=== PATIENT | female | born 1965 | race Caucasian/White ===

== ENCOUNTER → 2016-08-25 | Day surgery (SDC) | payer BC ==
[~2016-08-25] MED LIST: Buffered Lidocaine 1% SYR 3ML* 3 ML/SYR SYRINGE INTRADERM ONE; Buffered Lidocaine 1% SYR 3ML* 3 ML/SYR SYRINGE ONE; Bupivacaine 0.25% SDV* 30 ML ONE; Dexamethasone IV* 4 MG/ML 1 ML (4 MG) ONE; Famotidine IV* 10 MG/ML 2 ML (20 mg) IV ONE; Famotidine IV* 10 MG/ML 2 ML (20 mg) ONE; KETAMINE HCL* 50 MG/ML 10 ML VIAL ONE; Ketorolac INJ* 30 MG/ML 1 ML VIAL ONE; Lidocaine 2% PF * 5 ML VIAL ONE; Midazolam* 1 MG/ML 5 ML VIAL (5 MG) ONE; Ondansetron INJ* 2 MG/ML VIAL IV PRN; Ondansetron INJ* 2 MG/ML VIAL ONE; Propofol* 10 MG/ML 20 ML BTL IV PUSH ONE; ceFAZolin 2 GM PREMIX (*) 2 GM/50 ML BAG IVPB ONE; fentaNYL* 50 MCG/ML 2 ML VIAL (100 MCG VIAL) ONE; oxyCODONE/Acetamin 5/325 MG* TAB PO PRN
[2016-08-25 12:36] VITALS: BP 118/68
--- NOTE | 2016-08-26 15:00 | OP ---
OPERATIVE REPORT: DATE OF OPERATION: 08/25/16 - [facility] DATE OF : 61 SURGEON: Lucien Hale MD. PSYCH SPECIALIST: CHENCHO Randle. ANESTHESIOLOGIST: Dr. Godfrey. ANESTHESIA: General. PRE-OP DIAGNOSES: 1. Left carpal tunnel syndrome. 2. Left cubital tunnel syndrome. POST-OP DIAGNOSES: 1. Left carpal tunnel syndrome. 2. Left cubital tunnel syndrome. OPERATIVE PROCEDURE: 1. Left carpal tunnel release. 2. Left cubital tunnel release. INDICATIONS: Angella is a 50-year-old female, who has had progressive numbness and tingling in the left hand. She has had electrodiagnostic studies. Nonoperative treatment has failed, so we talked about risks and benefits and she would liked to proceed with surgery. FINDINGS: Large anconeus epitrochlearis muscle. ESTIMATED BLOOD LOSS: 5 mL. COMPLICATIONS: None. DESCRIPTION OF PROCEDURE: Angella was seen in the preoperative holding area and the correct site and side were marked. We came back to the operating room where anesthesia was induced and she was prepped and draped in the usual fashion. A formal time-out was performed. A standard longitudinal carpal tunnel incision was made. Dissection was carried down through the skin, subcutaneous tissue, and palmar fascia. This was all split longitudinally. I then went ahead and exposed the transverse carpal ligament. I used the tenotomy scissors to create a subcutaneous tunnel just ulnar to the palmaris longus tendon to a level about 4 to 5 cm proximal to the volar wrist flexion crease. I then went ahead and released the transverse carpal ligament, starting distally and staying just off the radial aspect of the hook of the hamate. The ligament was released sharply to the level for the volar wrist flexion crease. When I got to this point, I placed a Yumiko retractor into the subcutaneous tunnel and retracted all the tissues superficially. Under direct visualization, I then continued the release of the proximal transverse carpal ligament and the distal antebrachial fascia with the tenotomy scissors to a level about 5 cm proximal to the volar wrist flexion crease. I then went ahead and checked the decompression, and proximally and distally, it all looked very nice. The superficial palmar arch was seen. I then went ahead and irrigated the wound and closed the wound with 4-0 nylon suture. Attention was then turned to the elbow. A standard cubital tunnel incision was made centered over Rodrigez's ligament and extended about 4 cm distal and about 4 to 5 cm proximal to the elbow. Dissection was carried down through the subcutaneous tissue. No medial antebrachial cutaneous nerve was identified in the surgical wound. The release was started just proximal to the medial epicondyle. The ulnar nerve was identified and decompressed. I then continued the decompression distally. There was a very large and thick anconeus epitrochlearis muscle. This was released in its entirety. I then went ahead and continued the distal release by releasing the superficial fascia of the FCU and then splitting the muscle and then releasing the deep fascial layer of the FCU to a level 90 cm distal to the cubital tunnel. There was absolutely no pressure on the nerve, so I went ahead and turned my attention proximally, where decompression was carried out over the ulnar nerve all the way past the arcade of [place]. Again, there was absolutely no compression on the nerve. I went ahead and resected a little bit of the anconeus epitrochlearis. I then irrigated the wound. Hemostasis was obtained. The wound was closed with first some 3-0 Polysorb sutures and then some 4-0 nylon sutures. All wounds were dressed with Xeroform and 4x4s. The elbow wound had an ABD placed over it and wrapped with some sterile Webril and Dimitry wraps. She was then awoken back up and taken to the recovery room in stable condition. [id number]/[facility] #: [id number] DERRICK
== END | disposition home or self-care (01) ==
LOC: OREAST 08:29
PROVIDERS: ATTEND Orthopaedic Surgery Hand Surgery
DX: G56.02 Carpal tunnel syndrome, left upper limb (principal); G56.22 Lesion of ulnar nerve, left upper limb; Z79.82 Long term (current) use of aspirin; F17.210 Nicotine dependence, cigarettes, uncomplicated
CPT/HCPCS: J0690; J1100; J1885; J2250; J2405; J2704; J3010

== ENCOUNTER → 2016-09-08 | Day surgery (SDC) | payer BC ==
[~2016-09-08] MED LIST changes: -Buffered Lidocaine 1% SYR 3ML* 3 ML/SYR SYRINGE INTRADERM ONE; -Buffered Lidocaine 1% SYR 3ML* 3 ML/SYR SYRINGE ONE; -Bupivacaine 0.25% SDV* 30 ML ONE; -Dexamethasone IV* 4 MG/ML 1 ML (4 MG) ONE; -Famotidine IV* 10 MG/ML 2 ML (20 mg) IV ONE; -Famotidine IV* 10 MG/ML 2 ML (20 mg) ONE; -KETAMINE HCL* 50 MG/ML 10 ML VIAL ONE; -Ketorolac INJ* 30 MG/ML 1 ML VIAL ONE; +Lidocain 1% EPI 1:100,000 * 30 ML MDV ONE; -Lidocaine 2% PF * 5 ML VIAL ONE; -Midazolam* 1 MG/ML 5 ML VIAL (5 MG) ONE; -Ondansetron INJ* 2 MG/ML VIAL IV PRN; -Ondansetron INJ* 2 MG/ML VIAL ONE; -Propofol* 10 MG/ML 20 ML BTL IV PUSH ONE; -ceFAZolin 2 GM PREMIX (*) 2 GM/50 ML BAG IVPB ONE; -fentaNYL* 50 MCG/ML 2 ML VIAL (100 MCG VIAL) ONE; -oxyCODONE/Acetamin 5/325 MG* TAB PO PRN
[2016-09-08 14:39] VITALS: BP 152/79
--- NOTE | 2016-09-08 23:10 | OP ---
DATE OF OPERATION: 09/08/16 - [facility] DATE OF : 61 SURGEON: Lucien Hale MD TOOL CARRIER: CHENCHO Randle ANESTHESIOLOGIST: None. ANESTHESIA: Local only with lidocaine 1% with epinephrine. PRE-OP DIAGNOSIS: Right carpal tunnel syndrome. POST-OP DIAGNOSIS: Right carpal tunnel syndrome. OPERATIVE PROCEDURE: Right open carpal tunnel release. INDICATIONS: Angella is a 50-year-old woman. She has clinical and electrodiagnostic findings consistent with carpal tunnel syndrome. We talked about risks and benefits. She has done well with the carpal tunnel release on the left. She elected to proceed to surgery. ESTIMATED BLOOD LOSS: 5 mL. COMPLICATIONS: None. FINDINGS: As expected. DESCRIPTION OF PROCEDURE: Angella was seen in the preoperative holding area and the correct side and site were marked. We had to time-out and then I infiltrated the area with 1% lidocaine with epinephrine. We waited a while and then came back to the operating room where the arm was prepped and draped in the usual fashion and a formal time-out was performed. I went ahead and made a standard longitudinal incision in the standard carpal tunnel incision location. The incision was about 2 to 3 cm. Dissection was carried down through the skin and subcutaneous tissue and palmar fascia to the transverse carpal ligament. I then went ahead and created a subcutaneous tunnel superficial to the distal antebrachial fascia and just ulnar to the palmaris longus tendon. After that was done, I then went ahead and released the transverse carpal ligament starting distally and working proximally just off the radial aspect of the hook of the hamate. When I got to the level of the volar wrist flexion crease, I went ahead and placed the Yumiko retractor and retracted the skin and subcutaneous tissue superficially. Under direct visualization, I then went ahead and released the rest of the proximal transverse carpal ligament and the distal antebrachial fascia again with the tenotomy scissors to a level of about 4 to 5 cm proximal to the volar wrist flexion crease. I went ahead and checked for decompression proximally and distally and there was absolutely no compression on the nerve. The superficial palmar arch was seen. I then went ahead and irrigated the wound and closed the wound with 4-0 nylon suture. Xeroform and sterile dressings were applied. She was then taken to the recovery room in stable condition. [id number]/[facility] #: [id number] MTDD
== END | disposition home or self-care (01) ==
LOC: OREAST 09:44
PROVIDERS: ATTEND Orthopaedic Surgery Hand Surgery
DX: G56.01 Carpal tunnel syndrome, right upper limb (principal)